=== PATIENT | male | born 1960 | race Caucasian/White ===

== ENCOUNTER 2016-07-13 11:03 | Day surgery (SDC) | payer OTHER ==
[2016-07-12 11:48] VITALS: BMI 26.5
--- NOTE | 2016-07-12 20:24 | PREOPHP ---
DATE OF ADMISSION: 07/13/2016 HISTORY OF PRESENT ILLNESS: This 55-year-old patient is admitted for elective cataract surgery of t he left eye. The patient has noted decreased vision in the left eye which has progressed over the p ast 3 years. He denies any prior history of eye disease or injury. He is being treated for hyperch olesterolemia with gemfibrozil. No other medications. ALLERGIES: NO KNOWN ALLERGIES. PHYSICAL EXAMINATION: Visual acuity best corrected is 20/20 in the right eye and 20/200 in the left eye. Slit lamp examination reveals early posterior subcapsular cataract changes in the right eye a nd dense central posterior subcapsular cataract in the left eye. Applanation tonometry is 15 mmHg. Examination of the retina is within normal limits. DIAGNOSIS: Cataract, left eye. PLAN: Cataract extraction with lens implant, left eye. The risks and alternatives to the surgery h ave been discussed with the patient as well as the ability to improve visual acuity leading to a gre ater ability to perform activities of daily living. The patient understands this and desires to pro ceed with surgery. Dictated By: NESHA GOODRICH/GWENDOLYN Conf#: [id number] DID#: [id number]
[~2016-07-13] VITALS: Ht 182.9 cm; Wt 86.0 kg
[2016-07-13] VITALS (7 sets, daily range): BP systolic 135–153; BP diastolic 70–76; PULSE 63–72; RESP 18–24; Ht 182.9 cm; Wt 86.0 kg
[~2016-07-13 11:03] MED LIST: CIPROFLOXACIN 0.3% 2.5 ML OPH OPER SCH; CYCLOPENTOLATE/PHENYLEPH 2 ML OPH OPER SCH; DICLOFENAC 0.1% 2.5 ML OPH OPER SCH; LIDOCAINE 2% (SDV) 5 ML INJ ONE; PROPOFOL 200 MG INJ ONE; TROPICAMIDE 1% 2 ML OPH OPER SCH
[2016-07-13] MEDS ORDERED: GEMF600T60 PO (11:32)
[2016-07-13] MEDS ORDERED: DIPHENHYDRAMINE 50 MG INJ IV PRN (14:00)
[2016-07-13] MEDS ORDERED: morphine (1 MG/ML) 10ML SYRINGE IV PRN ×3 (14:00)
[2016-07-13] MEDS ORDERED: MEPERIDINE 25 MG INJ IV PRN (14:00)
[2016-07-13] MEDS ORDERED: HYDROmorphONE (0.2 MG/ML) 10ML SYG IV PRN ×3 (14:00)
[2016-07-13] MEDS ORDERED: OXYCODONE/ACETAMINOPHEN (5/325) TAB PO PRN ×2 (14:00)
[2016-07-13] MEDS ORDERED: ATROPINE 1 MG/10 ML SYRINGE IV PRN (14:00)
[2016-07-13] MEDS ORDERED: LABETALOL HCL 20MG INJ IV PRN (14:00)
[2016-07-13] MEDS ORDERED: EPHEDrine SULFATE 50 MG/5 ML SYG IV PRN (14:00)
[2016-07-13] MEDS ORDERED: hydrALAzine 20 MG INJ IV PRN (14:00)
[2016-07-13] MEDS ORDERED: ONDANSETRON 4 MG INJ IV PRN (14:00)
[2016-07-13] MEDS ORDERED: MIDAZOLAM 1 MG/ML 2 ML INJ IV PRN (14:00)
[2016-07-13] MEDS ORDERED: FENTAnyl 50 MCG/ML VIAL IV PRN ×2 (14:00)
[2016-07-13] MEDS ORDERED: LIDOCAINE 4% (MPF) 5 ML INJ ONE (15:09)
[2016-07-13] MEDS ORDERED: DEXAMETHASONE 4 MG/ML 1 ML INJ ONE (15:09)
[2016-07-13] MEDS ORDERED: CARBACHOL 0.01% 1.5 ML OPH INJ ONE (15:09)
[2016-07-13] MEDS ORDERED: CEFAZOLIN 1 GM INJ INJ ONE (15:19)
--- NOTE | 2016-07-13 15:25 | OPR ---
DATE OF OPERATION: 07/13/2016 PREOPERATIVE DIAGNOSIS: Cataract, left eye. POSTOPERATIVE DIAGNOSIS: Cataract, left eye. OPERATION PERFORMED: Cataract extraction with lens implant, left eye. SURGEON: Nesha Sanches MD. ANESTHESIOLOGIST: ANKUR BELL MD. ANESTHESIA: Local standby. OPERATION: Phacoemulsification with posterior chamber intraocular lens implant, left eye. PROCEDURE: The patient was brought to the operating room and placed on the table with an IV in plac e and the patient attached to an secured entrance monitor. Oxygen was given via face mask. After some intravenous sedation was administered, local anesthesia was given using Xylocaine 2% with epinephrine, mixed with Marcaine 0.5%. This was given in a lid block and retrobulbar injection. The patient was then prepped and draped in the usual sterile manner. A wire lid speculum was inserted between the lids of the left eye. A Superblade was used to enter th e anterior chamber at the corneoscleral limbus at the 10:30 o'clock position. A separate incision wa s made using a 3.0-mm keratome which entered the corneoscleral junction at the 12 o'clock position. Through this 3-mm opening, an irrigating cystitome was introduced into the anterior chamber. The ramsey mber was filled with Viscoat and an anterior capsulotomy was performed. Balanced salt solution was t hen used for hydrodissection of the lens. A phacoemulsification handpiece was then brought into the field and introduced into the anterior chamber. The lens nucleus was emulsified using a deep groove and cracking the nucleus into quadrants. Following this, each quadrant was aspirated and emulsified at the pupillary margin. After this was completed, the irrigation/aspiration handpiece was brought to the field, introduced i nto the posterior chamber, and the lens cortical material was removed. When this was completed, celso tional Viscoat was injected into the anterior and posterior chambers. The 3-mm opening had its internal lips enlarged, and then the posterior chamber intraocular lens danay suring 18.5 diopters (Bausch and Lomb model LI61AO) was then injected into the posterior chamber usi ng the lens injector system. After the leading haptic was introduced into the capsular bag and the l ens optic was present in the center of the eye, the injector was removed and the trailing haptic was grasped with non-toothed forceps and introduced into the capsular fold superiorly. A Sinskey hook w as then used to rotate the intraocular lens so that the lips were oriented in the horizontal meridia n. One 10-0 nylon suture was placed across the wound. Prior to tying, the irrigation/aspiration handpiece was reintroduced into the anterior chamber to re move the Viscoat. Miochol was instilled to constrict the pupil, and then the 10-0 nylon suture was t ied. The ends were cut short and then the knot was buried. Then, 0.5 mL of dexamethasone and 0.5 mL of Ancef were injected into the sub-Tenon space in the infe rior fornix. Ciloxan drops were then placed on the surface of the eye. The speculum was removed and a patch was applied. The patient then left the operating room in satisfactory condition. Dictated By: NESHA GOODRICH/GWENDOLYN Conf#: [id number] DID#: [id number]
== END 2016-07-13 16:05 | disposition home or self-care (01) ==
LOC: SDS 11:03
PROVIDERS: ATTEND Ophthalmology
DX: H25.042 Posterior subcapsular polar age-related cataract, left eye (principal); E78.5 Hyperlipidemia, unspecified
CPT/HCPCS: 66984; J0690; J1100; V2632

== ENCOUNTER 2018-05-16 05:34 | Day surgery (SDC) | END 2018-05-16 11:00 | disposition home or self-care (01) ==